=== PATIENT | male | born 1990 | race Caucasian/White ===

== ENCOUNTER 2017-12-25 19:04 | Observation (INO) ==
[2017-12-25 19:53] LABS: Bilirubin,Urine Negative (Negative); Blood,Urine Negative (Negative); Clarity,Urine Clear (Clear); Color,Urine Yellow (Yellow); Glucose,Urine (UA) >=1000 mg/dL (Normal); Ketones,Urine 40 mg/dL (Negative); Leukocyte Esterase,Urine Negative (Negative); Nitrite,Urine Negative (Negative); Protein,Urine Negative (Neg-Trace); Specific Gravity,Urine > 1.030 (1.010-1.025); Urobilinogen,Urine Normal (Normal)
[2017-12-25 20:10] LABS: VBG HCO3 29 mEq/L (21-27); VBG PCO2 57 mmHg (41-51); VBG PH 7.31 pH Units (7.32-7.42); VBG PO2 37 mmHg (25-50)
[2017-12-25] MEDS ORDERED: 0.9 % Sodium Chloride 1,000 ML IVC ONE ×2 (20:10→20:19)
[2017-12-25 20:19] LABS: Basophils # 0.1 K/mcL (0.0-0.2); Basophils % 0.7 %; Eosinophils # 0.4 K/mcL (0.0-0.6); Eosinophils % 4.2 %; Hematocrit 47.1 % (37.5-50.1); Immature Granulocytes % 0.3 % (0-4); Lymphocytes # 2.2 K/mcL (0.6-4.6); Lymphocytes % 24.7 %; Mean Corpuscular Hemoglobin 29.5 pg (28.0-33.3); Mean Corpuscular Volume 86.7 fL (83.0-100.0); Mean Platelet Volume 10.7 fL (9.4-12.4); Monocytes # 0.5 K/mcL (0.0-1.3); Monocytes % 5.4 %; Neutrophils # 5.7 K/mcL (1.6-8.9); Platelet Count 300 K/mcL (140-400); Red Blood Count 5.43 M/mcL (4.19-5.50); Red Cell Distribution Width 12.4 % (11.5-14.5); Segmented Neutrophils % 64.7 %
--- NOTE | 2017-12-25 20:19 | Emergency Department Note ---
Disposition Clinical Impression: Diabetes mellitus, new onset Disposition: Admitted As Inpatient Condition: Good General Adult HPI - General Chief complaint: ED General Medical Stated complaint: "I think I have diabetes" Time Seen by Provider: 12/25/17 20:04 Source: patient Limitations: no limitations Nursing Notes Reviewed: Yes Vital Signs Reviewed: Yes - History of Present Illness HPI Narrative: Mr Hoffmann is a 27 yo M who presents with a couple hx of dry mouth and urinating a lot. His son has T1DM, but he has never previously been diagnosed with Diabetes. Patient tested his own blood sugar and it was in the 300-400 range the last couple of days. Patient denies feeling sick recently, fever, chills, nausea, vomiting, diarrhea, blurry vision, n/t in extremities. Pain Scale: 0 - Related Data Home Medications Medication Instructions Recorded Confirmed No Known Home Drugs 11/07/15 12/25/17 Allergies Allergy/AdvReac Type Severity Reaction Status Date / Time No Known Allergies Allergy Verified 12/25/17 19:06 All systems ED: reviewed and negative except as stated. Review of Systems: As Per HPI Past Medical History - Past Medical History Attestation: Yes The following information was validated with the patient. Medical history: Reports: other Surgical history: Reports: no surgical history Psychiatric history: Reports: no psych history - Social History Smoking Status: Never smoker Smokeless Tobacco Status: No Alcohol use: Reports: occasionally Drug use: Reports: none Physical Exam - General Limitations: no limitations General appearance: alert, in no apparent distress - Head Head exam: atraumatic, normocephalic, normal inspection - Eye Eye exam: Present: normal appearance, PERRL, EOMI - ENT ENT exam: normal exam, normal oropharynx, mucous membranes dry - Chest Chest inspection: Present: normal inspection, symmetric chest wall rise - Respiratory Respiratory exam: Present: normal lung sounds bilaterally. Absent: respiratory distress, wheezes, stridor, accessory muscle use, prolonged expiratory phase - Cardiovascular Cardiovascular exam: Present: regular rate, normal rhythm, normal heart sounds. Absent: bradycardia, tachycardia, irregular rhythm, systolic murmur, diastolic murmur, JVD - Abdominal Exam Abdominal exam: Present: soft, Non-Tender, normal bowel sounds. Absent: tenderness, distention, guarding, rebound, rigidity, diminished bowel sounds - Extremities Exam Extremities exam: Present: normal inspection, full ROM, normal capillary refill. Absent: tenderness, pedal edema, joint swelling, calf tenderness Course Course Narrative: Ketones in urine, glu in the 400's, pH 7.31. patient most likely in DKA. BMP is pending. Starting fluids. Vital Signs Temperature 98.7 F 12/25/17 19:06 Pulse Rate 79 12/25/17 19:06 Respiratory Rate 20 12/25/17 19:06 Blood Pressure 151/91 12/25/17 19:06 O2 Sat by Pulse Oximetry 98 12/25/17 19:06 Temperature 97.9 F 12/25/17 23:05 Pulse Rate 60 12/25/17 23:05 Respiratory Rate 16 12/25/17 23:05 Blood Pressure 113/79 12/25/17 23:05 O2 Sat by Pulse Oximetry 99 12/25/17 23:05 Oxygen Delivery Oxygen Delivery Room Air Medical Decision Making - Lab Data Result diagrams: 12/25/17 19:42 12/25/17 19:42 Lab Results 12/25/17 12/25/17 12/25/17 Range/Units 19:08 19:09 19:15 WBC (4.3-11.1) K/mcL RBC (4.19-5.50) M/mcL Hgb (12.9-16.9) g/dL Hct (37.5-50.1) % MCV (83.0-100.0) fL MCH (28.0-33.3) pg MCHC (31.6-35.5) g/dL RDW (11.5-14.5) % Plt Count (140-400) K/mcL MPV (9.4-12.4) fL Immature Gran % (0-4) % Seg Neutrophils % % Lymphocytes % % Monocytes % % Eosinophils % % Basophils % % Neutrophils # (1.6-8.9) K/mcL Lymphocytes # (0.6-4.6) K/mcL Monocytes # (0.0-1.3) K/mcL Eosinophils # (0.0-0.6) K/mcL Basophils # (0.0-0.2) K/mcL VBG pH (7.32-7.42) pH Units VBG pCO2 (41-51) mmHg VBG pO2 (25-50) mmHg VBG HCO3 (21-27) mEq/L Sodium (136-145) mEq/L Potassium (3.5-5.1) mEq/L Chloride (98-107) mEq/L Carbon Dioxide (23-29) mEq/L BUN (6-20) mg/dL Creatinine (0.70-1.30) mg/dL Est GFR ( Amer) (> 60) Est GFR (Non-Af Amer) (> 60) BUN/Creatinine Ratio (6-26) Glucose (70-105) mg/dL POC Glucose 460 H* 432 H* (58-89) Calculated Osmolality (280-300) Calcium (8.6-10.3) mg/dL Total Bilirubin (0.3-1.0) mg/dL AST (13-39) Units/L ALT (7-52) Units/L Alkaline Phosphatase (34-104) Units/L Serum Total Protein (6.4-8.9) g/dL Albumin (3.5-5.7) g/dL Globulin (2.4-3.5) g/dL Albumin/Globulin Ratio (1.1-2.2) Beta-Hydroxybutyric Acd (0.02-0.27) mmol/L TSH (0.340-5.600) mcIU/mL Urine Color Yellow (Yellow) Urine Clarity Clear (Clear) Urine pH 6.0 (5.0-8.0) pH Units Ur Specific Bard > 1.030 H (1.010-1.025) Urine Protein Negative (Neg-Trace) mg/dL Urine Glucose (UA) >=1000 H (Normal) mg/dL Urine Ketones 40 H (Negative) mg/dL Urine Blood Negative (Negative) Urine Nitrite Negative (Negative) Urine Bilirubin Negative (Negative) Urine Urobilinogen Normal (Normal) mg/dL Ur Leukocyte Esterase Negative (Negative) Ur Culture Indicated? NO (NO) 12/25/17 12/25/17 12/25/17 Range/Units 19:42 19:42 19:42 WBC 8.9 (4.3-11.1) K/mcL RBC 5.43 (4.19-5.50) M/mcL Hgb 16.0 (12.9-16.9) g/dL Hct 47.1 (37.5-50.1) % MCV 86.7 (83.0-100.0) fL MCH 29.5 (28.0-33.3) pg MCHC 34.0 (31.6-35.5) g/dL RDW 12.4 (11.5-14.5) % Plt Count 300 (140-400) K/mcL MPV 10.7 (9.4-12.4) fL Immature Gran % 0.3 (0-4) % Seg Neutrophils % 64.7 % Lymphocytes % 24.7 % Monocytes % 5.4 % Eosinophils % 4.2 % Basophils % 0.7 % Neutrophils # 5.7 (1.6-8.9) K/mcL Lymphocytes # 2.2 (0.6-4.6) K/mcL Monocytes # 0.5 (0.0-1.3) K/mcL Eosinophils # 0.4 (0.0-0.6) K/mcL Basophils # 0.1 (0.0-0.2) K/mcL VBG pH (7.32-7.42) pH Units VBG pCO2 (41-51) mmHg VBG pO2 (25-50) mmHg VBG HCO3 (21-27) mEq/L Sodium 134 L (136-145) mEq/L Potassium 4.3 (3.5-5.1) mEq/L Chloride 96 L (98-107) mEq/L Carbon Dioxide 25 (23-29) mEq/L BUN 18 (6-20) mg/dL Creatinine 0.97 (0.70-1.30) mg/dL Est GFR ( Amer) > 60 (> 60) Est GFR (Non-Af Amer) > 60 (> 60) BUN/Creatinine Ratio 19 (6-26) Glucose 451 H (70-105) mg/dL POC Glucose (58-89) Calculated Osmolality 299 (280-300) Calcium 9.7 (8.6-10.3) mg/dL Total Bilirubin 0.4 (0.3-1.0) mg/dL AST 15 (13-39) Units/L ALT 21 (7-52) Units/L Alkaline Phosphatase 88 (34-104) Units/L Serum Total Protein 7.1 (6.4-8.9) g/dL Albumin 4.6 (3.5-5.7) g/dL Globulin 2.5 (2.4-3.5) g/dL Albumin/Globulin Ratio 1.8 (1.1-2.2) Beta-Hydroxybutyric Acd > 2.00 H (0.02-0.27) mmol/L TSH 4.282 (0.340-5.600) mcIU/mL Urine Color (Yellow) Urine Clarity (Clear) Urine pH (5.0-8.0) pH Units Ur Specific Bard (1.010-1.025) Urine Protein (Neg-Trace) mg/dL Urine Glucose (UA) (Normal) mg/dL Urine Ketones (Negative) mg/dL Urine Blood (Negative) Urine Nitrite (Negative) Urine Bilirubin (Negative) Urine Urobilinogen (Normal) mg/dL Ur Leukocyte Esterase (Negative) Ur Culture Indicated? (NO) 12/25/17 12/25/17 Range/Units 20:06 21:51 WBC (4.3-11.1) K/mcL RBC (4.19-5.50) M/mcL Hgb (12.9-16.9) g/dL Hct (37.5-50.1) % MCV (83.0-100.0) fL MCH (28.0-33.3) pg MCHC (31.6-35.5) g/dL RDW (11.5-14.5) % Plt Count (140-400) K/mcL MPV (9.4-12.4) fL Immature Gran % (0-4) % Seg Neutrophils % % Lymphocytes % % Monocytes % % Eosinophils % % Basophils % % Neutrophils # (1.6-8.9) K/mcL Lymphocytes # (0.6-4.6) K/mcL Monocytes # (0.0-1.3) K/mcL Eosinophils # (0.0-0.6) K/mcL Basophils # (0.0-0.2) K/mcL VBG pH 7.31 L (7.32-7.42) pH Units VBG pCO2 57 H (41-51) mmHg VBG pO2 37 (25-50) mmHg VBG HCO3 29 H (21-27) mEq/L Sodium (136-145) mEq/L Potassium (3.5-5.1) mEq/L Chloride (98-107) mEq/L Carbon Dioxide (23-29) mEq/L BUN (6-20) mg/dL Creatinine (0.70-1.30) mg/dL Est GFR ( Amer) (> 60) Est GFR (Non-Af Amer) (> 60) BUN/Creatinine Ratio (6-26) Glucose (70-105) mg/dL POC Glucose 302 H (58-89) Calculated Osmolality (280-300) Calcium (8.6-10.3) mg/dL Total Bilirubin (0.3-1.0) mg/dL AST (13-39) Units/L ALT (7-52) Units/L Alkaline Phosphatase (34-104) Units/L Serum Total Protein (6.4-8.9) g/dL Albumin (3.5-5.7) g/dL Globulin (2.4-3.5) g/dL Albumin/Globulin Ratio (1.1-2.2) Beta-Hydroxybutyric Acd (0.02-0.27) mmol/L TSH (0.340-5.600) mcIU/mL Urine Color (Yellow) Urine Clarity (Clear) Urine pH (5.0-8.0) pH Units Ur Specific Bard (1.010-1.025) Urine Protein (Neg-Trace) mg/dL Urine Glucose (UA) (Normal) mg/dL Urine Ketones (Negative) mg/dL Urine Blood (Negative) Urine Nitrite (Negative) Urine Bilirubin (Negative) Urine Urobilinogen (Normal) mg/dL Ur Leukocyte Esterase (Negative) Ur Culture Indicated? (NO) Attestation Statement - Attestation Attestation: I, Delbert Castro, examined this patient and my medical decision-making was reviewed with the HEARING EXAMINER/PA/Advanced Practice Nurse/Resident Physician. I agree with the documented findings, disposition and treatment plan as described except to the extent set forth below. 37-year-old male presents emergency Department with concerns of possible acute onset diabetes. Patient states he has noticed he has been urinating more frequently and increasingly thirsty over the past few days. Patient is familiar with symptoms of diabetes as his son has diabetes. Patient denies fever, chills, nausea, vomiting, diarrhea, recent trauma. He did however have recent vaccinations over the weekend as well as heavy workout. Vision blood sugar was significantly elevated on initial evaluation emergency department. He does have elevated beta hydroxybutyric acid in his system however his anion gap is only 13. Patient vital signs are stable. He will be admitted to the hospital for new onset diabetes with elevated beta hydroxybutyric acid.
[2017-12-25 20:25] LABS: Alanine Aminotransferase 21 Units/L (7-52); Albumin 4.6 g/dL (3.5-5.7); Albumin/Globulin Ratio 1.8 (1.1-2.2); Alkaline Phosphatase 88 Units/L (34-104); Aspartate Amino Transferase 15 Units/L (13-39); BUN/Creatinine Ratio 19 (6-26); Bilirubin,Total 0.4 mg/dL (0.3-1.0); Blood Urea Nitrogen 18 mg/dL (6-20); Calcium 9.7 mg/dL (8.6-10.3); Carbon Dioxide 25 mEq/L (23-29); Chloride 96 mEq/L (98-107); Globulin 2.5 g/dL (2.4-3.5); Glucose 451 mg/dL (70-105); Osmolality,Calculated 299 (280-300); Potassium 4.3 mEq/L (3.5-5.1); Sodium 134 mEq/L (136-145); Total Protein 7.1 g/dL (6.4-8.9); eGFR For African Americans > 60 (> 60); eGFR For Non-African Americans > 60 (> 60)
[2017-12-25 20:37] LABS: Thyroid Stimulating Hormone 4.282 mcIU/mL (0.340-5.600)
[2017-12-25] MEDS ORDERED: Insulin Regular, Human 100 UNIT/ML SQ ONE (21:15)
[2017-12-25] MEDS ORDERED: *HR* OxyCODONE Immed Rel 5 MG TABLET PO PRN (23:25)
[2017-12-25] MEDS ORDERED: Naloxone 0.4 MG/ML INJ IVP PRN (23:25)
[2017-12-25] MEDS ORDERED: Acetaminophen 325 MG TABLET PO PRN (23:25)
[2017-12-25] MEDS ORDERED: traMADol 50 MG TABLET PO PRN (23:25)
[2017-12-25] MEDS ORDERED: 0.9 % Sodium Chloride 1,000 ML IVC SCH (23:30)
--- NOTE | 2017-12-25 23:32 | Internal Med History&Physical ---
Date of Encounter: 12/26/17 Time of Encounter: 23:31 Assessment and Plan (1) Diabetes mellitus, new onset Current visit: Yes Status: Acute 27/male Strong family history of type 1 diabetes. Patient's son is a 6-year-old and he is a positive for type 1 diabetes Came with polyuria/polydipsia. Noted that patient's CBG on arrival was >450 was given sub cut insulin and latest sugar is 302 in ER plan will admit as observation basal insulin 20 units correction schedule as per sub cuteneous order set. cont IV fluids likely home tomorrow outpatient referral to Endocrine. patient prefers to follow up at [facility]. to avoid duplication of tests work up regarding Type I DM is not done here. I have examined this patient in ER 31 patient's at bedside. plan of care explained. (2) DVT prophylaxis Current visit: Yes Status: Acute SCD Internal Medicine - H&P: HPI Chief complaint: elevated blood sugar. Admitted From: Emergency Dept Plans for Post Hospital Care: Home History of present illness: PCP: Dr Newman Brief PMH: No significant past medical history HPI: Patient presented to emergency department with the concern that he probably is diabetic. Patient checked his fingerstick 4 glucose. The reading at home was more than 300. Patient claims that his son who is a [id number] is a type I diabetic. In patient's family there is no other significant family history regarding type 1 diabetes. Patient does have polyuria/polydipsia. Patient denies any occult infection or any obvious source of infection now. Workup in the emergency room: Patient was evaluated in the emergency room. Basic labs were drawn. On a VBG, pH: 7.31, bicarbonate: 29. On a chemistry patient glucose was 451, POC 302. He does not reveal any proteinuria. We had attributed regressed was more than 2. I discussed with the option regarding short stay, IV fluids, insulin long- acting and possible early discharge with the referral to research/program director to evaluate type 1 diabetes mellitus. Patient's mother is a nurse practitioner. I discussed this option with her and she agreed with that. Family history: Patient's son is a type I diabetic. Past Med Surg Social Fam HX - Past Medical History Medical history: other Psychiatric history: no psych history - Past Surgical History Surgical History: no surgical history - Social History Smoking Status: Never smoker Smokeless Tobacco Status: No Alcohol use: occasionally Drug use: none - Family History Mother Living Status: Still Living Father Living Status: Still Living Internal Medicine - H&P: Meds No Known Home Drugs 11/07/15 [History] 3 Allergy/AdvReac Type Severity Reaction Status Date / Time No Known Allergies Allergy Verified 12/25/17 19:06 All Systems PM: A 10-system review of systems was performed and is negative for pertinent findings except as documented above in the HPI. - Constitutional Constitutional: as per HPI, fatigue, lethargy, no chills, no fever(s), no night sweats Additional comments: Polyuria/polydipsia - EENT Eyes: no change in vision, no discharge, no pain, no photophobia Ears: no ear discharge, no ear pain, no tinnitus Nose, mouth and throat: no dysphagia, no nasal discharge, no neck pain, no sore throat - Cardiovascular Cardiovascular ROS IM: no chest pain, no diaphoresis, no dyspnea, no lightheadedness, no palpitations, no syncope - Respiratory Respiratory: no cough, no dyspnea, no wheezing, no excessive phlegm production - Gastrointestinal Gastrointestinal: no abdominal pain, no diarrhea, no hematemesis, no hematochezia, no melena, no nausea, no vomiting - Musculoskeletal Musculoskeletal ROS IM: no numbness, no tingling - Integumentary Integumentary IM: no rash, no unusual bruising - Neurological Neurological ROS: no confusion, no convulsions, no focal weakness, no numbness, no tingling, no tremor(s) - Hematologic/Lymphatic Hematologic/Lymphatic: no easy bruising - Constitutional Vitals: Temp Pulse Resp BP Pulse Ox 97.9 F 60 16 113/79 99 12/25/17 23:05 12/25/17 23:05 12/25/17 23:05 12/25/17 23:05 12/25/17 23:05 General appearance: Present: A&O X 3, pleasant, no acute distress, answers questions appropriately - Head Head exam: Present: atraumatic, normocephalic - Eye Eye exam: Present: PERRL, conjuntiva pink, sclera anicteric Pupils: Present: PERRL - Neck Neck exam general surgery: Present: supple, trachea midline. Absent: lymphadenopathy - Respiratory Respiratory exam: Present: CTAB. Absent: accessory muscle use, rales, rhonchi, wheezes - Cardiovascular Cardiovascular exam: Present: RRR, +S1, +S2. Absent: diastolic murmur, gallop, rubs, systolic murmur - GI/Abdominal GI/Abdominal exam: Present: normal bowel sounds, soft, no peritoneal signs. Absent: distended, tenderness - Extremities Exam Extremities exam: Present: warm, radial pulses palpable and symmetrical. Absent : calf tenderness, cyanotic, pedal edema - Neurological Exam Neurological exam: Present: CN II-XII intact, oriented X3, no focal deficits. Absent: pronater drift, facial droop, speech deficit - Skin Skin exam: Present: dry, intact Internal Med - H&P Results - Labs CBC & Chem 7: 12/26/17 00:37 12/26/17 00:37
[2017-12-25] MEDS ORDERED: D5% in Water 1,000 ML IVC PRN (23:45)
[2017-12-25] MEDS ORDERED: *HR* Dextrose 50 % in Water (Syg) 50 ML SYRINGE IVP PRN (23:45)
[2017-12-25] MEDS ORDERED: Dextrose Gel 15 GM/37.5 ML TUBE PO PRN ×2 (23:45)
[2017-12-26 01:34] LABS: Hematocrit 42.6 % (37.5-50.1); Mean Corpuscular HGB Conc 33.3 g/dL (31.6-35.5); Mean Corpuscular Hemoglobin 28.8 pg (28.0-33.3); Mean Corpuscular Volume 86.4 fL (83.0-100.0); Mean Platelet Volume 10.6 fL (9.4-12.4); Platelet Count 265 K/mcL (140-400); Red Blood Count 4.93 M/mcL (4.19-5.50); Red Cell Distribution Width 12.1 % (11.5-14.5)
[2017-12-26 01:37] LABS: Hemoglobin 14.2 g/dL (12.9-16.9)
[2017-12-26 01:38] LABS: Prothrombin Time 10.9 Seconds (9.4-12.1)
[2017-12-26 01:41] LABS: Activated Partial Thrombo Time 26.2 Seconds (26.0-36.0)
[2017-12-26 02:16] LABS: Alanine Aminotransferase 17 Units/L (7-52); Albumin 3.7 g/dL (3.5-5.7); Albumin/Globulin Ratio 1.9 (1.1-2.2); Alkaline Phosphatase 70 Units/L (34-104); Aspartate Amino Transferase 12 Units/L (13-39); BUN/Creatinine Ratio 19 (6-26); Bilirubin,Total 0.3 mg/dL (0.3-1.0); Blood Urea Nitrogen 15 mg/dL (6-20); Calcium 8.4 mg/dL (8.6-10.3); Carbon Dioxide 25 mEq/L (23-29); Globulin 1.9 g/dL (2.4-3.5); Glucose 193 mg/dL (70-105); Phosphorous 2.9 mg/dL (2.7-4.5); Total Protein 5.6 g/dL (6.4-8.9); eGFR For African Americans > 60 (> 60); eGFR For Non-African Americans > 60 (> 60)
[2017-12-26 02:44] LABS: Chloride 106 mEq/L (98-107); Osmolality,Calculated 294 (280-300); Potassium 3.3 mEq/L (3.5-5.1); Sodium 139 mEq/L (136-145)
[2017-12-26] MEDS ORDERED: Insulin LISPRO 300 UNITS/3 ML VIAL SQ SCH (07:30)
[2017-12-26 08:07] LABS: Hemoglobin A1C 11.8 %
[2017-12-26 08:09] VITALS: BP 121/72
--- NOTE | 2017-12-26 11:01 | Discharge Summary ---
- NOTES TO OUTPATIENT PROVIDER Notes to Outpatient Provider: [facility]. Understands the importance of follow up in the next week. Orders not resulted at time of discharge: Have not ordered C-peptide, or insulin antibodies at this time. Date of Encounter: 12/26/17 Time of Encounter: 10:59 - Discharge Diagnosis (1) Diabetes mellitus, new onset Priority: Primary Status: Acute Comments: It is not clear if this is type 1 diabetes mellitus or type II. He understands sliding-scale insulin, and therefore should be okay until he gets [facility]. He is somewhat anxious to go today. His mother is also an MANUFACTURING ENGINEERING TECHNOLOGIST, who can help him as well. Blood sugars are about 158 at this time. Hospital course: Mr. Hoffmann is a 27 year old male presented from home with new onset hyperglycemia. He has a son with Type 1 diabetes; for last couple of days, appreciated polyuria ,polydipsia, in the ER his glucose was found to be over 400. He was subsequently brought in the hospital given some IV insulin with response. He is currently awake ,alert he wants to continue his care at the [place] given his insurance status and his role in the . He is certainly stable for discharge at this time he is smart about insulin given again a son with type 1 diabetes. She will be given a sliding scale with Humalog. Prescriptions were given. Again it is not clear if he will be type I or type II, but given his stance on wanting to leave today, this seems to be the best bet for him. Discharge discussed with: patient Time spent discussing smoking cessation with patient: 3 to 10 minutes - Time Spent with Patient Total time spent providing and/or coordinating discharge services: Less than 30 minutes - Discharge Medications Prescriptions: Insulin LISPRO [Humalog Kwikpen U-100] 100 unit SQ 3-4XD PRN #3 mls PRN Reason: Hyperglycemia Home Medications: Insulin LISPRO [Humalog Kwikpen U-100] 100 unit SQ 3-4XD PRN #3 mls 12/26/17 [Rx ] Allergies/Adverse Reactions: 3 Allergy/AdvReac Type Severity Reaction Status Date / Time No Known Allergies Allergy Verified 12/25/17 19:06 Date of admission: 12/25/17 22:24 Primary care physician: Raj Newman MD - Constitutional Vitals: Temp Pulse Resp BP Pulse Ox 97.9 F 53 20 121/72 99 12/26/17 08:08 12/26/17 08:08 12/26/17 08:08 12/26/17 08:08 12/26/17 08:08 General appearance: Present: A&O X 3, pleasant, no acute distress, answers questions appropriately - Neck Neck exam general surgery: Present: full ROM, supple, trachea midline - Respiratory Respiratory exam: Present: CTAB - Cardiovascular Cardiovascular exam: Present: +S1, +S2, +S3, +S4 - GI/Abdominal GI/Abdominal exam: Present: normal bowel sounds, soft, no peritoneal signs - Extremities Exam Extremities exam: Present: full ROM, normal inspection, warm. Absent: cyanotic , mottling - Patient Status Disposition: Home, Self-Care Condition: Good Functional capacity at discharge: independent ambulation Overall status at discharge: patient is back to baseline - Discharge Instructions Instructions: Insulin Lispro (Injection), Diabetes Mellitus Type 1 in Adults ( DC), Diabetes Mellitus Type 2 in Adults (DC) Follow Up With: Raj Newman MD [Primary Care Provider] - (An appointment has been requested. Office to contact patient at home to schedule appointment. ) - Diet and Activity Diet: diabetic diet
[2017-12-26] MEDS ORDERED: Insulin DETEMIR 100 UNIT/ML X5UNITS SQ SCH (21:00)
== END 2017-12-26 11:40 | disposition home or self-care (01) ==
LOC: 3BNU 19:04 → EMEROO 19:04 → 3BNU 22:56
PROVIDERS: ADMIT Internal Medicine; ATTEND Registered Nurse